=== PATIENT | male | born 1990 | race Caucasian/White ===

== ENCOUNTER 2019-04-19 06:21 | Day surgery (SDC) | payer MEDICAID, MEDICARE ==
[~2019-04-19] VITALS: Ht 170.2 cm; Wt 72.4 kg
[~2019-04-19 06:21] MED LIST: AMLO-150 PO; ASPI325T17 PO; CALC667C PO; CLON1PAT2 TD; DIVA-59 PO; DOXA8TAB63 PO; HYDR100T25 PO; LISI40TA PO; METO200T47 PO; OMEP-110 PO; SEVE800T7 PO
[2019-04-19] MEDS ORDERED: HEPARIN 1,000 UNITS/ML, 10ML ONE (06:36)
[2019-04-19] MEDS ORDERED: THROMBIN (RECOMBINANT) 5,000 UNIT VIAL TP ONE (06:36)
[2019-04-19] MEDS ORDERED: PROTAMINE SULFATE 10 MG/ML, 5ML ONE (06:36)
[2019-04-19] MEDS ORDERED: BUPIVACAINE/PF 0.5% ONE (06:36)
[2019-04-19 07:06] VITALS: BP 178/94
[2019-04-19] MEDS ORDERED: SODIUM CHLORIDE 0.9% 1,000 ML IV SCH (07:06)
[2019-04-19] MEDS ORDERED: FENTANYL PF 100 MCG/2ML ONE ×3 (07:18→09:55)
[2019-04-19] MEDS ORDERED: PROPOFOL 10 MG/ML, 20ML ONE (07:18)
[2019-04-19] MEDS ORDERED: MIDAZOLAM 1 MG/ML, 2ML ONE (07:18)
[2019-04-19] MEDS ORDERED: ONDANSETRON 2MG/ML, 2ML ONE (07:19)
[2019-04-19] MEDS ORDERED: CEFAZOLIN 1,000 MG ONE ×2 (07:19)
[2019-04-19] MEDS ORDERED: [UNRECOGNIZED DRUG - OTHER] (08:09)
[2019-04-19 08:17] LABS: ALANINE AMINOTRANSFERASE 17 U/L (12-78); ALBUMIN 3.4 g/dL (3.4-5.0); ANION GAP 11 mmol/L (5-15); CALCIUM 9.2 mg/dL (8.5-10.1); CHLORIDE 97 mmol/L (98-107)
[2019-04-19 08:19] LABS: ALKALINE PHOSPHATASE 71 U/L (45-117); BILIRUBIN,TOTAL 0.4 mg/dL (0.2-1.0); TOTAL PROTEIN 6.5 g/dL (6.4-8.2)
[2019-04-19] MEDS ORDERED: SUGAMMADEX 200 MG/2 ML IVPush ONE (08:31)
[2019-04-19] MEDS ORDERED: ROCURONIUM 10MG/ML,5ML ONE (08:31)
[2019-04-19] MEDS ORDERED: MIDAZOLAM 1 MG/ML, 2ML IV PRN (09:00)
[2019-04-19] MEDS ORDERED: ONDANSETRON 2MG/ML, 2ML IV PRN (09:00)
[2019-04-19] MEDS ORDERED: HYDROmorphone 2 MG/ML, 1ML IVPush PRN (09:00)
[2019-04-19] MEDS ORDERED: hydrALAzine 20 MG/ML, 1ML IV PRN (09:00)
[2019-04-19] MEDS ORDERED: LORazepam 2 MG/ML, 1ML IVPush PRN (09:00)
[2019-04-19] MEDS ORDERED: LABETALOL 5MG/ML, 20ML IV PRN (09:00)
[2019-04-19] MEDS ORDERED: OXYcodone 5 MG/5 ML ORAL.SOL UDC ONE (09:55)
[2019-04-19] MEDS: FENTANYL PF 100 MCG/2ML IV PRN ×2 (09:57→10:04)
[2019-04-19] MEDS: OXYcodone 5 MG/5 ML ORAL.SOL UDC PO PRN ×2 (10:00→12:11)
[2019-04-19] MEDS ORDERED: LORazepam 2 MG/ML, 1ML ONE (10:05)
[2019-04-19] MEDS ORDERED: hydrALAzine 20 MG/ML, 1ML ONE (10:13)
== END 2019-04-19 15:40 | disposition home or self-care (01) ==
LOC: OUT 06:21
PROVIDERS: ATTEND Surgery Vascular Surgery
DX: T82.898A Other specified complication of vascular prosthetic devices, implants and grafts, initial encounter (principal); I12.0 Hypertensive chronic kidney disease with stage 5 chronic kidney disease or end stage renal disease; N18.6 End stage renal disease; E78.5 Hyperlipidemia, unspecified; F41.9 Anxiety disorder, unspecified; Z88.0 Allergy status to penicillin; Z91.048 Other nonmedicinal substance allergy status; Y83.8 Other surgical procedures as the cause of abnormal reaction of the patient, or of later complication, without mention of misadventure at the time of the procedure
CPT/HCPCS: 36415; 36832; 80053; J0360; J0690; J1644; J2060; J2250; J2405; J2704; J2720; J3010; J7030